=== PATIENT | male | born 2000 | race Caucasian/White ===

== ENCOUNTER → 2021-01-24 | Outpatient (CLI) | payer BC ==
[~2021-01-24] MED LIST: CREATINE100 GM PO; VITAMIN A2400 MCG PO; VITAMIN B COMP1 EACH PO; VITAMIN C500 M2 PO; VITAMIN D325 MC3 PO; VITAMIN K100 MCG PO; [UNRECOGNIZED DRUG - OTHER] PO
== END ==
LOC: LAB 09:29
PROVIDERS: ATTEND Otolaryngology
DX: Z01.812 Encounter for preprocedural laboratory examination (principal); Z20.822 Contact with and (suspected) exposure to COVID-19

== ENCOUNTER 2021-01-27 06:53 | Day surgery (SDC) | payer BC ==
[~2021-01-27] VITALS: Ht 188 cm; Wt 104.3 kg
--- NOTE | ~2021-01-27 | O ---
[facility] [place] [address] OPERATIVE REPORT Name: STARLA BEJARANO Room #: 150-4 [facility]#: [id number] Admission: 01/27/21 Attend Phys: Rishi Guillen MD Discharge: Date of : 98 Report #: [id number] THIS REPORT FOR: cc: Sebastian Jessica,Sebastian Oviedo,Rishi Carter MD ~ DATE OF SERVICE: 01/27/2021 PREOPERATIVE DIAGNOSES: Nasal septal deformity, turbinate hypertrophy. POSTOPERATIVE DIAGNOSES: Nasal septal deformity, turbinate hypertrophy. PROCEDURES: Nasal septoplasty, submucous resection of inferior turbinates with outfracturing. SURGEON: Rishi Guillen MD ANESTHESIA: General oral LMA. INDICATIONS: Significant bowing of the quadrangular cartilage to the left side and off the maxillary crest on the left side, progressing posteriorly into the vomer. Right greater than left turbinate hypertrophy noted. TECHNIQUE: After obtaining consent, the patient was brought to the operating suite, appropriate time-out was performed. General oral LMA anesthesia was obtained. The bed was turned 90 degrees. He was placed in a slight head up position. Cottonoids with Afrin were placed in the nares for vasoconstriction of the turbinate tissue. A 6 mL of 1% Xylocaine 1:100,000 epinephrine was injected on each side of the nasal septum. Additionally, in the case, another 3 mL was injected submucosally in the inferior turbinates care being made not to inject intravascularly. Right-sided hemitransfixion incision was performed with elevation of mucoperichondrial and mucoperiosteal flap on the left side, fully exposing the quadrangular cartilage and the anterior vomer and perpendicular plate. A large piece of quadrangular cartilage was harvested on the deviation leaving enough anteriorly and superiorly for tip support. The bony cartilaginous junction was disarticulated and the mucosal flap was elevated off the vomer and perpendicular plate on the right side to fully expose the deviation that continued and into the vomer. This was taken down with the use of Samir scissors and Eva forceps. I then returned anteriorly where I elevated a little more of the maxillary crest and took this down with a chisel. A small oozing vessel on the nasal floor was taken care of with suction cautery. Previously harvested cartilage was trimmed, morcellized, and placed back between the mid septal flaps. A small mucosal rent was created on the left inferior portion for [facility] [address] [place] [address] OPERATIVE REPORT Name: STARLA BEJARANO Room #: 150-4 [facility]#: [id number] Admission: 01/27/21 Attend Phys: Rishi Guillen MD Discharge: Date of : 98 Report #: [id number] drainage purposes. Simple splints were designed and fashioned by myself, placed on each side of the septum and secured with a 3-0 Prolene suture after closing the hemitransfixion incision with 4-0 chromic. Each inferior turbinate was medialized with a [place] elevator. A small incision was made with a Love blade on the anterior tip of the inferior turbinate and a submucous dissection with a [place] was made on the medial and medial inferior surfaces. A 2.0 microdebrider blade was then used to submucosally resect turbinate tissue. Each turbinate was then outfractured with a [place] elevator resulting in improved air space. A single piece of [place] was trifolded and placed between the septal splint and the medial surface of the turbinate to prevent synechia formation as well as improved lateralization. The nasopharynx and the nose was suctioned free of secretions. He was then returned to anesthesia where he was lightened, extubated and taken to recovery room in stable condition. ESTIMATED BLOOD LOSS: 100 mL. By: [id number] [id number] Rishi Guillen MD /aroldo
[2021-01-27 07:35] VITALS: BP 153/86
--- NOTE | 2021-01-27 08:26 | H ---
[facility] [place] [address] HISTORY AND PHYSICAL Name: STARLA BEJARANO Room #: 150-4 [facility]..#: [id number] Admission: 01/27/21 Attend Phys: Rishi Guillen MD Discharge: Date of : 98 Report #: [id number] THIS REPORT FOR: cc: Sebastian Jessica,Sebastian Oviedo,Rishi Carter MD ~ DATE OF SERVICE: 01/27/2021 CHIEF COMPLAINT: Nasal airway obstruction secondary to septal deviation, turbinate hypertrophy. HISTORY OF PRESENT ILLNESS: The patient is a 20-year-old gentleman first evaluated in 11/2020 for his concerns of longstanding nasal airway obstruction and symptomatic turbinate hypertrophy. He did have a history of some sleep disordered breathing and a home sleep study was performed, which did not demonstrate any significant apnea at all. His physical examination in November visit did demonstrate significant left-sided septal deflection and compensatory turbinate hypertrophy. This was also evaluated and seen on the CT scan as required by his insurance company for documentation. Based on the above anatomic findings, he was deemed a good candidate for septoplasty and turbinate reduction surgery with the goal to improve his nasal airflow. Surgical risks and benefits including, but not limited to anesthesia, bleeding, infection, scarring, septal perforation, change or loss of sense of smell, lack of improvement in nasal congestion, scar tissue, need for postoperative packing were all discussed and he agrees to proceed forward. ALLERGIES TO MEDICATION: None. MEDICATIONS ON ADMISSION: Rhinocort nasal spray on a p.r.n. basis. PAST MEDICAL AND SURGICAL HISTORY: None. FAMILY HISTORY: Noncontributory. REVIEW OF SYSTEMS: Negative for any known GI, , cardiovascular, pulmonary or hematopoietic issues. PHYSICAL EXAMINATION: VITAL SIGNS: Height of 62, weight of 230 pounds. HEENT: As noted above in the HPI. NECK: Normal to palpation. CHEST: Clear. CARDIOVASCULAR: Regular rhythm. ASSESSMENT: History of septal deformity and turbinate hypertrophy. [address] [address] HISTORY AND PHYSICAL Name: STARLA BEJARANO Room #: 150[address] [place] [address]#: [id number] Admission: 01/27/21 Attend Phys: Rishi Guillen MD Discharge: Date of : 98 Report #: [id number] PLAN: Will be for the above-mentioned surgical intervention. <ELECTRONICALLY SIGNED> By: Rishi Guillen MD 01/27/21 0826 [id number] Rishi Guillen MD /nt
== END 2021-01-27 11:00 | disposition home or self-care (01) ==
LOC: OR 06:53 → TBA 07:10 → OR 09:18
PROVIDERS: ATTEND Otolaryngology
DX: J34.2 Deviated nasal septum (principal); J34.3 Hypertrophy of nasal turbinates; Z98.890 Other specified postprocedural states
CPT/HCPCS: 50010; 50101; 50386; 50403; 51634; 53635; 56526; 56528; 62110; 62900; 70005